=== PATIENT | male | born 1935 | race Caucasian/White ===

== ENCOUNTER 2019-05-20 02:28 | Emergency (ER) | payer MEDICARE ==
[~2019-05-20] VITALS: Ht 175.2 cm; Wt 90.7 kg
--- NOTE | ~2019-05-20 | EKG ---
[place], [place] ELECTROCARDIOGRAM REPORT NAME: CONCETTA GRIER UNIT #: [id number] ROOM: DOCTOR: EPIPHANY DRAFT REPORT BIRTHDATE: [birth year] [facility] Test Date: 2019-05-20 Test Time: 03:07:22 Pat Name: CONCETTA GRIER Department: Room: Gender: M Mandrel Maker: : [id number] Requested By: PANCHO CONTRERAS Order Number: [id number] Reading MD: Measurements Intervals [employer]ak Rate: 112 P: OK: QRS: 40 QRSD: 101 T: 218 QT: 379 QTc: 518 Interpretive Statements Atrial fibrillation Inferior infarct, old Lateral leads are also involved Prolonged QT interval Compared to ECG 02/19/2019 08:01:55 Myocardial infarct finding now present Prolonged QT interval now present Sinus rhythm no longer present Ventricular premature complex(es) no longer present First degree AV block no longer present Intraventricular conduction delay no longer present Early repolarization no longer present Possible ischemia no longer present CM:EKGRPT:ELECTROCARDIOGRAM REPORT [id number] PANCHO CONTRERAS MD EPIPHANY DRAFT REPORT PANCHO CONTRERAS MD
[~2019-05-20 02:28] MED LIST: 'TENORMIN50 MG PO; AMLODIPINE10 MG PO; AMOXICILLIN500 MG PO; ASPIRIN81 M1 PO; ATOXIMETIN-B1 CAP PO; CLINDAMYCIN150 MG PO; FOLIC ACID0.4 MG PO; FOSINOPRIL SODI10 MG PO; HYDROCODONE BIT1 T11 PO; LISINOPRIL10 MG PO; PREDNISONE50 MG PO; SIMVASTATIN20 MG PO; TYLENOL325 M2 PO; ULTRAM50 MG PO; VICODIN 5/500 505 MG PO
[2019-05-20 03:11] LABS: BASO % 0.5 % (0.0-1.0); EOS # 0.5 10*3/uL (0.0-0.4); EOS % 8.7 % (1.0-4.0); HEMATOCRIT 42.6 % (42.0-52.0); HEMOGLOBIN 13.8 g/dl (14.0-18.0); LYMPH % 16.3 % (27.0-41.0); MEAN CELL VOLUME 90.4 fl (80.0-94.0); MEAN CORPUSCULAR HGB 29.3 pg (27.0-31.0); MEAN CORPUSCULAR HGB CONC 32.4 g/dl (33.0-37.0); MONO # 0.6 10*3/uL (0.1-1.0); MONO % 10.5 % (3.0-9.0); NEUT # 3.7 10*3/uL (2.3-7.9); NEUT % 63.1 % (47.0-73.0); PLATELET COUNT AUTOMATED 166 10*3/uL (130-400); RED BLOOD COUNT 4.71 10*6/uL (4.50-5.90); RED CELL DISTRI WIDTH 13.7 % (0-14.5); WHITE BLOOD COUNT 5.8 10*3/uL (4.8-10.8)
[2019-05-20 03:27] LABS: ALBUMIN 3.7 gm/dl (3.1-4.5); ALKALINE PHOSPHATASE 79 U/L (45-117); BUN 23 mg/dl (7-24); CHLORIDE 103 mmol/L (98-107); CREATININE 1.93 mg/dL (0.70-1.30); POTASSIUM 4.2 mmol/L (3.5-5.1); SGOT/AST 18 IU/L (3-35); SGPT/ALT 19 U/L (12-78); SODIUM 136 mmol/L (136-145); TOTAL PROTEIN 7.1 gm/dL (6.4-8.2)
[2019-05-20 03:28] LABS: TROPONIN I < 0.015 ng/ml (<0.045)
[2019-05-20] MEDS ORDERED: KEFLEX500 M1 PO (03:49)
[2019-05-20] MEDS ORDERED: PREDNISONE20 M1 PO (03:49)
== END 2019-05-20 04:09 | disposition home or self-care (01) ==
LOC: ED 02:28
PROVIDERS: Emergency Medicine Emergency Medical Services
DX: J20.9 Acute bronchitis, unspecified (principal); I10 Essential (primary) hypertension; I25.2 Old myocardial infarction; F17.210 Nicotine dependence, cigarettes, uncomplicated; Z79.899 Other long term (current) drug therapy; Z79.82 Long term (current) use of aspirin; Z86.718 Personal history of other venous thrombosis and embolism

== ENCOUNTER 2019-12-07 23:16 | Emergency (ER) | payer MEDICARE ==
[~2019-12-07] VITALS: Ht 175.2 cm; Wt 90.7 kg
[~2019-12-07 23:16] MED LIST changes: +KEFLEX500 M1 PO; +PREDNISONE20 M1 PO
[2019-12-08 00:10] LABS: BASO # 0.1 10*3/uL (0.0-0.1); BASO % 0.7 % (0.0-1.0); EOS # 0.7 10*3/uL (0.0-0.4); EOS % 8.8 % (1.0-4.0); HEMATOCRIT 40.7 % (42.0-52.0); LYMPH # 1.2 10*3/uL (1.3-4.4); LYMPH % 16.1 % (27.0-41.0); MEAN CELL VOLUME 87.5 fl (80.0-94.0); MEAN CORPUSCULAR HGB CONC 33.2 g/dl (33.0-37.0); MEAN PLATELET VOLUME 9.1 fl (9.6-12.3); MONO # 0.8 10*3/uL (0.1-1.0); MONO % 10.3 % (3.0-9.0); NEUT # 4.8 10*3/uL (2.3-7.9); NEUT % 63.6 % (47.0-73.0); PLATELET COUNT AUTOMATED 171 10*3/uL (130-400); RED BLOOD COUNT 4.65 10*6/uL (4.50-5.90); RED CELL DISTRI WIDTH 13.2 % (0-14.5); WHITE BLOOD COUNT 7.5 10*3/uL (4.8-10.8)
[2019-12-08 00:27] LABS: ALBUMIN 3.5 gm/dl (3.1-4.5); ALKALINE PHOSPHATASE 102 U/L (45-117); BUN 24 mg/dl (7-24); CHLORIDE 104 mmol/L (98-107); CREATININE 1.65 mg/dL (0.70-1.30); POTASSIUM 4.3 mmol/L (3.5-5.1); SGOT/AST 14 IU/L (3-35); SGPT/ALT 21 U/L (12-78); SODIUM 134 mmol/L (136-145)
[2019-12-08 00:58] LABS: TROPONIN I < 0.015 ng/ml (<0.045)
[2019-12-08 01:07] LABS: INTERNATIONAL NORM RATIO 1.1 (2.0-3.5)
== END 2019-12-08 00:20 | disposition home or self-care (01) ==
LOC: ED 23:16
PROVIDERS: Physician Assistant
DX: R60.0 Localized edema (principal); I10 Essential (primary) hypertension; I25.2 Old myocardial infarction; Z79.899 Other long term (current) drug therapy

== ENCOUNTER 2020-03-24 23:41 | Emergency (ER) | payer MEDICARE ==
[~2020-03-24] VITALS: Ht 182.8 cm; Wt 90.7 kg
[2020-03-25 00:15] LABS: BASO # 0.1 10*3/uL (0.0-0.1); BASO % 0.6 % (0.0-1.0); EOS # 0.7 10*3/uL (0.0-0.4); EOS % 9.1 % (1.0-4.0); HEMATOCRIT 42.1 % (42.0-52.0); LYMPH # 1.7 10*3/uL (1.3-4.4); LYMPH % 22.5 % (27.0-41.0); MEAN CELL VOLUME 88.8 fl (80.0-94.0); MEAN CORPUSCULAR HGB 29.1 pg (27.0-31.0); MEAN CORPUSCULAR HGB CONC 32.8 g/dl (33.0-37.0); MEAN PLATELET VOLUME 9.3 fl (9.6-12.3); MONO # 0.8 10*3/uL (0.1-1.0); NEUT # 4.4 10*3/uL (2.3-7.9); NEUT % 56.9 % (47.0-73.0); PLATELET COUNT AUTOMATED 166 10*3/uL (130-400); RED BLOOD COUNT 4.74 10*6/uL (4.50-5.90); RED CELL DISTRI WIDTH 13.6 % (0-14.5); WHITE BLOOD COUNT 7.7 10*3/uL (4.8-10.8)
[2020-03-25 00:28] LABS: INTERNATIONAL NORM RATIO 1.1 (2.0-3.5)
[2020-03-25 00:37] LABS: ALBUMIN 3.6 gm/dl (3.1-4.5); ALKALINE PHOSPHATASE 102 U/L (45-117); BUN 28 mg/dl (7-24); CHLORIDE 103 mmol/L (98-107); CREATININE 1.76 mg/dL (0.70-1.30); POTASSIUM 3.9 mmol/L (3.5-5.1); SGOT/AST 17 IU/L (3-35); SGPT/ALT 24 U/L (12-78); SODIUM 138 mmol/L (136-145); TOTAL PROTEIN 6.8 gm/dL (6.4-8.2)
[2020-03-25 00:38] LABS: TROPONIN I < 0.015 ng/ml (<0.045)
== END 2020-03-25 02:16 | disposition short-term general hospital (02) ==
LOC: ED 23:41
PROVIDERS: Emergency Medicine
DX: I63.9 Cerebral infarction, unspecified (principal); I25.2 Old myocardial infarction; I10 Essential (primary) hypertension; Z91.041 Radiographic dye allergy status; Z79.899 Other long term (current) drug therapy; Z87.891 Personal history of nicotine dependence

== ENCOUNTER 2020-12-26 23:36 | Emergency (ER) | payer MEDICARE ==
[~2020-12-26] VITALS: Ht 396.2 cm; Wt 83.9 kg
[2020-12-27 02:44] LABS: BASO # 0.1 10*3/uL (0.0-0.1); BASO % 0.8 % (0.0-1.0); EOS # 0.5 10*3/uL (0.0-0.4); HEMATOCRIT 41.6 % (42.0-52.0); LYMPH # 1.8 10*3/uL (1.3-4.4); LYMPH % 23.7 % (27.0-41.0); MEAN CELL VOLUME 91.2 fl (80.0-94.0); MEAN CORPUSCULAR HGB 29.6 pg (27.0-31.0); MEAN CORPUSCULAR HGB CONC 32.5 g/dl (33.0-37.0); MEAN PLATELET VOLUME 9.6 fl (9.6-12.3); MONO # 0.8 10*3/uL (0.1-1.0); MONO % 10.3 % (3.0-9.0); NEUT # 4.4 10*3/uL (2.3-7.9); NEUT % 57.7 % (47.0-73.0); PLATELET COUNT AUTOMATED 159 10*3/uL (130-400); RED BLOOD COUNT 4.56 10*6/uL (4.50-5.90); RED CELL DISTRI WIDTH 13.2 % (0-14.5); WHITE BLOOD COUNT 7.6 10*3/uL (4.8-10.8)
== END 2020-12-27 04:34 | disposition home or self-care (01) ==
LOC: ED 23:36
PROVIDERS: Internal Medicine
DX: K91.840 Postprocedural hemorrhage of a digestive system organ or structure following a digestive system procedure (principal); Z79.899 Other long term (current) drug therapy; Z79.82 Long term (current) use of aspirin; Z79.01 Long term (current) use of anticoagulants

== ENCOUNTER → 2021-02-26 | Outpatient (CLI) | payer MEDICARE | END | disposition home or self-care (01) | LOC: CT 12:48 | PROVIDERS: ATTEND Internal Medicine | DX: K40.90 Unilateral inguinal hernia, without obstruction or gangrene, not specified as recurrent (principal); N28.1 Cyst of kidney, acquired; N28.89 Other specified disorders of kidney and ureter; I25.10 Atherosclerotic heart disease of native coronary artery without angina pectoris; K43.2 Incisional hernia without obstruction or gangrene; Z90.49 Acquired absence of other specified parts of digestive tract ==

== ENCOUNTER → 2021-02-27 | Outpatient (CLI) | payer MEDICARE | END | disposition home or self-care (01) | LOC: RAD 15:53 | PROVIDERS: ATTEND Orthopaedic Surgery | DX: M17.0 Bilateral primary osteoarthritis of knee (principal); M25.752 Osteophyte, left hip; M25.751 Osteophyte, right hip; M25.852 Other specified joint disorders, left hip; M25.851 Other specified joint disorders, right hip; M25.762 Osteophyte, left knee; M25.761 Osteophyte, right knee; M25.462 Effusion, left knee; M25.461 Effusion, right knee ==

== ENCOUNTER → 2021-06-09 | Outpatient (CLI) | payer MEDICARE | END | disposition home or self-care (01) | LOC: US 09:28 | PROVIDERS: ATTEND Surgery Vascular Surgery | DX: Z13.6 Encounter for screening for cardiovascular disorders (principal); I71.4 Abdominal aortic aneurysm, without rupture ==

== ENCOUNTER 2023-01-21 00:57 | Emergency (ER) | payer MEDICARE ==
[~2023-01-21] VITALS: Ht 175.2 cm; Wt 81.6 kg
[2023-01-21 01:24] LABS: BASO % 0.5 % (0.0-1.0); EOS # 0.6 10*3/uL (0.0-0.4); HEMATOCRIT 45.8 % (42.0-52.0); LYMPH # 1.8 10*3/uL (1.3-4.4); LYMPH % 21.9 % (27.0-41.0); MEAN CELL VOLUME 90.3 fl (80.0-94.0); MEAN CORPUSCULAR HGB 30.6 pg (27.0-31.0); MEAN CORPUSCULAR HGB CONC 33.8 g/dl (33.0-37.0); MEAN PLATELET VOLUME 9.8 fl (9.6-12.3); MONO # 0.7 10*3/uL (0.1-1.0); MONO % 8.6 % (3.0-9.0); NEUT # 5.1 10*3/uL (2.3-7.9); NEUT % 61.4 % (47.0-73.0); PLATELET COUNT AUTOMATED 145 10*3/uL (130-400); RED BLOOD COUNT 5.07 10*6/uL (4.50-5.90); RED CELL DISTRI WIDTH 13.3 % (0-14.5); WHITE BLOOD COUNT 8.4 10*3/uL (4.8-10.8)
[2023-01-21 01:43] LABS: INTERNATIONAL NORM RATIO 1.2 (2.0-3.5)
[2023-01-21 01:46] LABS: ALKALINE PHOSPHATASE 124 U/L (46-116); BUN 21 mg/dl (9-23); CHLORIDE 101 mmol/L (98-107); LIPASE 50 U/L (12-53); SGPT/ALT 21 U/L (10-49); TOTAL PROTEIN 7.2 gm/dL (6.0-8.0)
[2023-01-21] MEDS ORDERED: ELIQUIS5 M1 PO (01:50)
[2023-01-21] MEDS ORDERED: TENORMIN50 MG PO (01:52)
[2023-01-21] MEDS ORDERED: FOSINOPRIL SODI10 MG PO (01:52)
[2023-01-21] MEDS ORDERED: NORVASC2.5 MG PO (01:53)
[2023-01-21] MEDS ORDERED: LASIX20 MG PO (01:53)
[2023-01-21] MEDS ORDERED: MULTI-VITAMIN1 EACH PO (01:55)
[2023-01-21] MEDS ORDERED: FLOMAX0.4 MG PO (01:55)
[2023-01-21] MEDS ORDERED: SUPER B WITH V1 EACH PO (01:56)
[2023-01-21] MEDS ORDERED: VITAMIN D310 MC1 PO (01:56)
[2023-01-21 02:21] LABS: BILIRUBIN Negative (Negative); BLOOD Trace-Lysed (Negative); CLARITY Clear (Clear); COLOR Yellow (Yellow); GLUCOSE Negative (Negative); KETONE Negative (Negative); LEUKO ESTERASE Negative (Negative); NITRITE Negative (Negative); PH 6.5 (4.5-8.0); SPECIFIC GRAVITY <= 1.005 (1.001-1.030)
[2023-01-21 02:29] LABS: MUCOUS 1+
== END 2023-01-21 03:55 | disposition home or self-care (01) ==
LOC: ED 00:57
PROVIDERS: Internal Medicine
DX: M25.512 Pain in left shoulder (principal); I48.91 Unspecified atrial fibrillation; Z91.041 Radiographic dye allergy status; Z79.899 Other long term (current) drug therapy; Z79.82 Long term (current) use of aspirin; Z98.890 Other specified postprocedural states